=== PATIENT | female | born 1975 | race Caucasian/White ===

== ENCOUNTER 2018-08-17 00:01 | Emergency (ER) | payer SELFPAY ==
[2018-08-17 01:10] VITALS: BP 142/68; PULSE 84; TEMP 98.1; BMI 34.4
--- NOTE | 2018-08-17 02:11 | PDOC ---
Attending Attestation - HPI HPI: 08/17/18 02:27 Patient is a 42 year old female with no significant past medical history who presents to the ED with complaints of rash that began earlier this week. Patient reports getting bed bugs from [place] [facility] that she [facility] been in recently, prompting her to come into the ED for skin cream for scabies/bed bugs. Denies other issues at this time. History limited due to patient noncompliance and became abusive towards staff. Allergies: None Social history: No smoking. No alcohol. No illicit drugs Surgical history: None PMD: None - Physicial Exam PE: 08/17/18 02:27 Agree with residents Physical Exam. <René Garza - Last Filed: 08/17/18 02:27> - Resident Resident Name: Federico Cha - ED Attending Attestation I have performed the following: I have examined & evaluated the patient, The case was reviewed & discussed with the resident, I agree w/resident's findings & plan - Medical Decision Making 08/17/18 02:34 42-year-old female with rash Patient will be discharged with Permethrin cream <Rosy Oneil - Last Filed: 08/17/18 02:36>
[2018-08-17] MEDS ORDERED: PERMETHRIN 5% TOPICAL CREAM 60 GM TUBE TP ONE (02:22)
--- NOTE | 2018-08-17 02:23 | PDOC ---
History of Present Illness - General Chief Complaint: Psychiatric Stated Complaint: EMOTIONALLY DISTURBED Time Seen by Provider: 08/17/18 02:07 History Source: Patient Exam Limitations: No Limitations - History of Present Illness Initial Comments: 08/17/18 02:17 Patient is a 42F with history of homelessness here today complaining of bed bugs. She has no other acute complaints. Patient was brought in by EMS for emotional disturbance after she found a bed bug. She states that she wants a cream and that she was recently given a cream for bed bugs. Denies other issues at this time. History limited due to patient noncompliance and became abusive towards staff. Past History - Past Medical History Allergies/Adverse Reactions: Allergies Allergy/AdvReac Type Severity Reaction Status Date / Time No Known Allergies Allergy Verified 08/17/18 01:10 COPD: No Other medical history: Pt denies - Suicide/Smoking/Psychosocial Hx Smoking History: Current some day smoker Have you smoked in the past 12 months: Yes Number of Cigarettes Smoked Daily: 3 Information on smoking cessation initiated: No Hx Alcohol Use: Yes (Social) Drug/Substance Use Hx: No Review of Systems - Review of Systems Able to Perform ROS?: No (patient noncompliance) *Physical Exam - Vital Signs Last Vital Signs Temp Pulse Resp BP Pulse Ox 98.1 F 84 19 142/68 98 08/17/18 00:55 08/17/18 00:55 08/17/18 00:55 08/17/18 00:55 08/17/18 01:53 - Physical Exam Comments: 08/17/18 02:21 GENERAL: Awake, alert, and fully oriented x4, in no acute distress HEAD: No signs of trauma, normocephalic, atraumatic EYES: PERRLA, EOMI, sclera anicteric, conjunctiva clear ENT: Auricles normal inspection, hearing grossly normal, nares patent, oropharynx clear without exudates. Moist mucosa LUNGS: No distress, speaks full sentences, clear to auscultation bilaterally HEART: Regular rate and rhythm, normal S1 and S2, no murmurs, rubs or gallops, peripheral pulses normal and equal bilaterally. EXTREMITIES: Normal inspection, Normal range of motion, no edema. No clubbing or cyanosis. NEUROLOGICAL: Cranial nerves II through XII grossly intact. Normal speech, normal gait, no focal sensorimotor deficits SKIN: Warm, Dry, normal turgor, no rashes or lesions noted. Medical Decision Making - Medical Decision Making 08/17/18 02:22 Patient evaluated for bed bugs. No beg bugs seen on exam, no linear abrasions. Will discharge with permethin per her request. Patient refusing further examination and verbal abusive towards staff. Fully alert and oriented. No SI/ HI reported. *DC/Admit/Observation/Transfer Diagnosis at time of Disposition: Infestation by bed bug - Discharge Dispostion Disposition: HOME Condition at time of disposition: Good Decision to Admit order: No - Referrals Referrals: [facility] [place] [facility] [place] [Provider Group] - Patient Instructions Printed Discharge Instructions: DI for Bed Bug Bites Additional Instructions: Please use the permethin cream twice per day. Please follow up with a primary care physician, one is listed for you below if you do not have one. - Post Discharge Activity
== END 2018-08-17 03:36 | disposition home or self-care (01) ==
LOC: JER 00:01
DX: B88.8 Other specified infestations (principal); F17.210 Nicotine dependence, cigarettes, uncomplicated; Z59.0 Homelessness
CPT/HCPCS: 99284-25